=== PATIENT | female | born 1995 | race Caucasian/White ===

== ENCOUNTER 2017-08-07 16:17 | Emergency (ER) | payer BC, SELFPAY ==
[2017-08-07 16:19] VITALS: BP 163/93; PULSE 92; RESP 16; TEMP 36.4; O2SAT 99; BMI 42.0
--- NOTE | 2017-08-07 16:38 | ED.VISSUMM ---
- ER Visit Summary Date of Service: 08/07/17 Chief Complaint: Approximately 6 weeks with vaginal bleeding History of Present Illness: The patient is a 21 F past medical or surgical history. Patient believes she is 6-7 weeks . She has had no care but is scheduled to see Dr. Sallie Purcell of [facility] on Tuesday. She states that last evening today she has had some bright red bleeding. And mild cramping. Currently she is pain-free. She denies any dysuria. She denies any discharge. She has never been before. Physical Examination: Well-appearing young female. Vital signs are stable afebrile. H EENT exam normal. Neck normal. Lungs clear to auscultation bilaterally. Heart regular rate and rhythm no murmur. Abdomen is soft and nontender. No peritoneal signs. Normal bowel sounds. Nondistended. She is moving all 4 extremities. Neurovascular intact. Neurologic exam normal. Test Results: Reportedly Ab0. With vaginal bleeding. Blood type A+. Quantitative hCG is 3386. UA is negative. Transvaginal pelvic ultrasound shows a small endometrial fluid collection consistent with a gestational age of 5 weeks and 0 days. No pole. No yolk sac. Emergency Department Course and Treatment: On repeat exam patient is doing well at 2110. She currently is pain-free and has no reproducible abdominal pain. She denied discussed all her test results along with her . I discussed with Dr. Patrick Tadeo telecommunication lines repairer for Dr. Purcell. Patient be discharged home to follow-up with Dr. Purcell on Tuesday. Treatment Plan: Follow-up the [facility] on Tuesday. Return if increasing pain or much heavier bleeding. Disposition: Discharge Impression: with vaginal bleeding secondary to threatened miscarriage Ultrasound consistent with 5 weeks and 0 days This note was generated with [employer] dictation software. It may contain incorrect words, spelling, and punctuation that were not noted in review of the chart prior to signing ED Disposition - Plan for ED Patient: Chief Complaint: Vag Bld, Preg
[2017-08-07 16:58] LABS: Mucous, Urine 0 SEEN /hpf (<or=2+); White Blood Cells 0 SEEN /hpf (0-5)
[2017-08-07 17:02] LABS: Color, Urine Yellow (Yellow); Glucose, Dipstick Normal (Normal); Ketone-Dipstick 15 mg/dl (Negative); Leukocyte Esterase-Dipstick Negative /ul (Negative); Nitrite-Dipstick Negative (Negative); Occult Blood-Urine 250 /ul (Negative); Protein-Dipstick Negative (Negative); Specific Gravity, Urine 1.025 (1.002-1.030); Urine Bilirubin Dipstick Negative (Negative); Urine Clarity Clear (Clear); Urine Urobilinogen Normal (Normal)
[2017-08-07 17:29] LABS: Bacteria RARE /hpf (None Seen); Red Blood Cells-Urine 5-10 SEEN /hpf (0-5); Squamous Epithelial Cells - UA 0-5 SEEN /hpf (5-10)
[2017-08-07 18:13] LABS: hCG Titer Quant., Serum 3386 mIU/mL (<9 non-preg)
[2017-08-07 18:38] VITALS: BP 153/84; PULSE 107; RESP 14; O2SAT 99
--- NOTE | 2017-08-07 18:43 | US_ITS ---
STUDY: FIRST TRIMESTER OBSTETRICAL ULTRASOUND REASON FOR EXAM: Female, 21 years old. Spotting LMP: 06/20/2017 TECHNIQUE: Transabdominal and Transvaginal PRIOR ULTRASOUND: None. FINDINGS: There is visualization of a single possible gestational sac in a normal intrauterine position. The mean sac diameter (MSD) measures 7 x 4 x 4 mm, indicating an estimated gestational age (EGA) of 5 weeks, 0 days. The gestational sac shape is within normal limits. There is no demonstrated yolk sac. The placenta is non-visualized. There is no demonstrated embryo ( pole). . The estimated gestation age (EGA) by LMP is 6 weeks, 6 days. The estimated date of delivery (NANCY) by LMP is 03/27/2018. The estimated gestation age (EGA) by US is 5 weeks, 0 days. The estimated date of delivery (NANCY) by US is 04/09/2018. The uterus measures 9.2 x 4.8 x 4.2 cm. There is no demonstrated uterine fibroid. The cervix is closed. The right ovary measures 3.5 x 2.5 x 1.7 cm. There is no right ovarian cyst. There is no visualized right adnexal mass or complex lesion. The left ovary measures 3.5 x 2.4 x 1.4 cm. There is no left ovarian cyst. There is no visualized left adnexal mass or complex lesion. There is no fluid in the cul de sac. US/Transvaginal w/Preg US IMPRESSION: Small endometrial fluid collection seen measuring 7 x 4 x 4 mm. This corresponds to a gestational age of 5 weeks 0 days. This may be pharmaceutical representative of a very early or may be associated with ectopic. No pole or yolk sac is seen within this fluid structure. Close interval ultrasound follow-up with serial beta hCG levels is recommended. Electronically Signed: Lawrence Chen MD at 20:44 EST , Service support ,
[2017-08-07 20:25] VITALS: BP 129/74; PULSE 100; RESP 18; O2SAT 98
--- NOTE | 2017-08-07 21:13 | ED.DEP ---
ED Disposition - Plan for ED Patient: Disposition: Home or Assisted Living Chief Complaint: Vag Bld, Preg Instructions: ED Miscarriage Poss Referrals: Sallie Purcell MD [STAFF PHYSICIAN] - Keep Allison appointment Additional Instructions: Your blood type is A+. Your quantitative hCG equals 3, 386. Your ultrasound was consistent with an early at 5 weeks. You will need to follow-up with on Tuesday. Have repeat quantitative hCG obtained. She may or may not choose at that time to do additional ultrasound. Return to the ER if much heavier bleeding or significantly increasing pain.
[2017-08-07 21:22] VITALS: BP 126/75; PULSE 98; RESP 18; O2SAT 100
== END 2017-08-07 21:24 | disposition home or self-care (01) ==
PROVIDERS: Emergency Provider Emergency Medicine
DX: O20.0 Threatened abortion (principal); O20.9 Hemorrhage in early pregnancy, unspecified; Z3A.01 Less than 8 weeks gestation of pregnancy
CPT/HCPCS: 76817; 81001; 84702; 86900; 86901; 99283; A4216

== ENCOUNTER → 2018-06-13 15:32 | Outpatient (CLI) | payer BC, SELFPAY ==
[2018-06-13 20:02] LABS: Chlamydia Trachomatis by PCR Negative (Negative); Neisserai gonorrhoeae by PCR Negative (Negative); Probe Check PASS; Sample Adequacy Control PASS; Specimen Processing Control PASS
[2018-06-20 08:15] LABS: HPV HC, High Risk Negative (Negative); HPV Reflexed? NOT INDICATED
== END ==
PROVIDERS: Visit Provider Obstetrics & Gynecology
DX: Z12.4 Encounter for screening for malignant neoplasm of cervix (principal); Z11.3 Encounter for screening for infections with a predominantly sexual mode of transmission
CPT/HCPCS: 87491; 87591; 88175; G0145

== ENCOUNTER → 2018-07-04 10:06 | Outpatient (CLI) | payer BC, SELFPAY ==
[2018-07-04 10:44] LABS: Color, Urine Yellow (Yellow); Glucose, Dipstick Normal (Normal); Ketone-Dipstick Negative (Negative); Leukocyte Esterase-Dipstick Negative /ul (Negative); Nitrite-Dipstick Negative (Negative); Occult Blood-Urine 10 /ul (Negative); Protein-Dipstick Negative (Negative); Specific Gravity, Urine 1.015 (1.002-1.030); Urine Bilirubin Dipstick Negative (Negative); Urine Clarity Sl. Cloudy (Clear); Urine Urobilinogen Normal (Normal); Urine pH 6.5 (5.0 - 8.0)
[2018-07-04 13:39] LABS: Absolute Lymphocyte Count 1.82 X10^3/ul (0.83-4.51); Absolute Neutrophil Count 9.6 X10^3/uL (2.0-7.7); Basophil# 0.03 X10^3/uL; Basophil% 0.2 % (0-1); Eosinophil# 0.04 X10^3/uL; Eosinophils% 0.3 % (0-5); Hemoglobin 11.8 g/dl (12.0-15.0); Lymphocyte # 1.82 X10^3/ul (4.0); Mean Corp Hgb Conc 31.9 g/gl (32-36); Mean Corpuscular Hgb 26.2 pg (27.0-32.0); Mean Platelet Vol. 10.5 fl (6.2-12.0); Monocyte# 0.57 X10^3/uL; Monocyte% 4.7 % (0-10); Neutrophil # 9.61 X10^3/uL (2.7-7.7); Neutrophil % 79.6 % (47-70); POSITIVE COUNT NO; POSITIVE DIFFERENTIAL NO; POSITIVE MORPHOLOGY NO; Platelet Count 316 K/mm3 (150-450); RBC Distribution Width CV 14.9 % (11.6-14.6); RBC Distribution Width SD 44.7 fl (35.1-43.9); Red Blood Count 4.51 M/mm3 (4.2-5.4); White Blood Count 12.1 K/mm3 (4.4-11.0)
[2018-07-04 13:57] LABS: Thyroid Stim Hormone (TSH) 1.37 uIU/mL (0.358-3.74)
[2018-07-04 14:40] LABS: HIV - WCH Non-Reactive (Nonreactive); Rubella IgG 180.3 IU/mL
[2018-07-05 11:56] LABS: HEPATITIS B SURFACE AG Negative (Negative); Hep C Antibodies 0.1 s/co ratio (0.0-0.9)
[2018-07-07 07:39] LABS: Prenatal RPR NONREACTIVE (NONREACTIVE)
== END ==
PROVIDERS: Visit Provider Obstetrics & Gynecology
DX: Z34.81 Encounter for supervision of other normal pregnancy, first trimester (principal)
CPT/HCPCS: 36415; 81002; 84443; 85025; 86703; 86762; 86803; 87340

== ENCOUNTER → 2018-11-15 08:58 | Outpatient (CLI) | payer BC, SELFPAY ==
[2018-11-15 10:59] LABS: Hematocrit 33.3 % (37-47); Hemoglobin 10.9 g/dl (12.0-15.0); Mean Corp Hgb Conc 32.7 g/gl (32-36); Mean Corpuscular Hgb 27.7 pg (27.0-32.0); Mean Corpuscular Volume 84.5 fL (81-99); Mean Platelet Vol. 10.7 fl (6.2-12.0); Platelet Count 216 K/mm3 (150-450); RBC Distribution Width CV 14.3 % (11.6-14.6); RBC Distribution Width SD 43.4 fl (35.1-43.9); Red Blood Count 3.94 M/mm3 (4.2-5.4); Scan Indicated on CBC? Y/N NO; White Blood Count 11.2 K/mm3 (4.4-11.0)
[2018-11-15 11:04] LABS: Glucose Challenge Gest 1H 50g 98 mg/dL (70-140)
== END ==
PROVIDERS: Visit Provider Obstetrics & Gynecology
DX: Z34.83 Encounter for supervision of other normal pregnancy, third trimester (principal)
CPT/HCPCS: 36415; 82950; 85027

== ENCOUNTER → 2018-12-13 16:08 | Outpatient (CLI) | payer BC, SELFPAY ==
[2018-12-13 16:46] LABS: Fetal Fibronectin Negative
== END ==
PROVIDERS: Visit Provider Obstetrics & Gynecology
DX: O23.43 Unspecified infection of urinary tract in pregnancy, third trimester (principal); Z3A.00 Weeks of gestation of pregnancy not specified
CPT/HCPCS: 82731; 87086; 87088

== ENCOUNTER → 2019-01-11 10:52 | Outpatient (CLI) | payer BC, SELFPAY | PROVIDERS: Visit Provider Obstetrics & Gynecology | DX: Z36.85 Encounter for antenatal screening for Streptococcus B (principal) | CPT/HCPCS: 87077; 87081; 87186 ==

== ENCOUNTER 2019-01-28 15:50 | Outpatient (CLI) | payer BC, SELFPAY ==
[2019-01-28 16:09] VITALS: BMI 40.9
--- NOTE | 2019-01-30 06:23 | OB.TRI.NOTE ---
History of Present Illness Date of Service: 01/28/19 Was patient seen by the physician?: No Reason For Visit: Decreased Movement Date of Service: 01/28/19 Final NANCY: 02/06/19 Final NANCY Source: US <20 weeks Gestational age: 38 Weeks and 5 Days History of Present Illness: 38+ week intrauterine presents with decreased movement. care otherwise has been uneventful. Allergies clarithromycin [From Biaxin] Allergy (Verified 08/07/17 16:18) Hives NST - FHR Rate Baby A NST Reactive:: Yes FHR Category:: Category I Impression/Plan 38+ week and uterine with decreased movement. Nonstress test is reactive. Will release to home with routine instructions.
== END 2019-01-28 16:35 | disposition home or self-care (01) ==
LOC: WPOUT 15:56 → WP 15:57
PROVIDERS: Visit Provider Obstetrics & Gynecology
DX: O36.8130 Decreased fetal movements, third trimester, not applicable or unspecified (principal); Z3A.38 38 weeks gestation of pregnancy
CPT/HCPCS: 59025; 59050; 99218; G0378

== ENCOUNTER 2019-02-11 08:48 | Inpatient (IN) | payer BC, SELFPAY ==
[2019-02-11 08:37] VITALS: BMI 41.8
[2019-02-11 08:47] LABS: ROM Internal Control Test YES-OK TO RESULT pt. (Internal QC)
[2019-02-11 08:48] LABS: ROM Patient Test POSITIVE (Negative)
[2019-02-11] MEDS: Lactated Ringers 1,000 ML 50 ML IV (09:20)
[2019-02-11 09:33] LABS: Absolute Lymphocyte Count 1.89 X10^3/uL (0.83-4.51); Absolute Neutrophil Count 12.3 X10^3/uL (2.0-7.7); Basophil# 0.03 X10^3/uL; Basophil% 0.2 % (0-1); Eosinophil# 0.08 X10^3/uL; Eosinophils% 0.5 % (0-5); Hematocrit 34.1 % (37-47); Lymphocyte # 1.89 X10^3/ul (4.0); Lymphocyte % 12.4 % (19-41); Mean Corp Hgb Conc 32.3 g/dL (32-36); Mean Corpuscular Hgb 26.8 pg (27.0-32.0); Mean Corpuscular Volume 83.2 fL (81-99); Mean Platelet Vol. 10.3 fl (6.2-12.0); Monocyte# 0.79 X10^3/uL; Monocyte% 5.2 % (0-10); NRBC Flagged by Analyzer 0 % (0-5); Neutrophil # 12.34 X10^3/uL (2.7-7.7); Neutrophil % 80.8 % (47-70); Platelet Count 216 K/mm3 (150-450); RBC Distribution Width CV 14.6 % (11.6-14.6); RBC Distribution Width SD 44.1 fl (35.1-43.9); White Blood Count 15.3 K/mm3 (4.4-11.0)
[2019-02-11] MEDS: Oxytocin 30 units/NS 500 ml 30 UNITS/500 ML IV.SOLN IV (12:32)
[2019-02-11] MEDS: Lactated Ringers 500 ML 999 ML IV ×2 (16:22→20:18)
[2019-02-11] MEDS: fentaNYL-bupivacaine (epidural) 100 ML BAG EPIDURAL (17:24)
[2019-02-11] MEDS: Ondansetron 4 MG/2 ML Vial IV (18:07)
[2019-02-11] MEDS: 0.9% Saline Lock 10 ML Syringe IV (18:08)
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
[2019-02-11] MEDS: Amnioinfusion- 0.9% NS 1,000 ML IV.SOLN. 50 ML INTRA-UTER (20:01)
[2019-02-11] MEDS: Lactated Ringers 1,000 ML 200 ML IV (20:42)
[2019-02-11] MEDS: Sodium Citrate/Citric Acid 30 ML UDC PO (21:31)
[2019-02-11] MEDS: Cefazolin 2 GM in 0.9% Normal Saline 100 ML IV (21:36)
--- NOTE | 2019-02-11 21:41 | PCM.PN.OB ---
Subjective: Patient has progressed to approximately 6 to 7 cm 90% effaced -1 station with adequate contractions noted with an intrauterine pressure catheter. Multiple late decelerations have been noted over the past hour despite starting an amnioinfusion, stopping Pitocin and giving the patient nc oxygen as well as putting on her hands and knees. Given no prospect of delivery soon with continued intermittent late decelerations, we will proceed with primary section for increasing stress. We discussed the risks, benefits and alternatives of this procedure and all questions were answered. - Physical Exam Weight: 243 lb 6.245 oz Body Mass Index (BMI) 41.8 Intake and Output for Last 24 Hours 02/09/19 02/10/19 02/11/19 23:59 23:59 23:59 Intake Total Balance Laboratory Tests Past 24 Hrs 02/11/19 02/11/19 02/11/19 08:20 09:20 09:20 WBC 15.3 H RBC 4.10 L Hgb 11.0 L Hct 34.1 L MCV 83.2 MCH 26.8 L MCHC 32.3 RDW Std Deviation 44.1 H RDW Coeff of Lul 14.6 Plt Count 216 MPV 10.3 Immature Gran % (Auto) 0.900 Neut % (Auto) 80.8 H Lymph % (Auto) 12.4 L Bradley % (Auto) 5.2 Eos % (Auto) 0.5 Baso % (Auto) 0.2 Absolute Neuts (auto) 12.3 H Absolute Lymphs (auto) 1.89 Nucleated RBC % 0 Vag Amniotic Fld Detect POSITIVE H Blood Type A POSITIVE Antibody Screen NEGATIVE Medical Necessity - Tobacco Use Smoking Status: Never smoker
--- NOTE | 2019-02-11 21:44 | OP.PCM_ITS ---
Delivery Classification: LUCERO Final NANCY: 02/06/19 Final NANCY Source: US <20 weeks Gestational age: 40 Weeks and 5 Days doctor who attended delivery (if requested by OB): Mikaela Taveras amusement ride inspector: Arlene Rodriguez Type of Anesthesia:: Epidural - With Duramorph Implants Used: None Date of Procedure: 02/11/19 Pre-Operative Diagnosis: Postdate Intrauterine with Increasing Stress Post-Operative Diagnosis: Postdate Intrauterine with Increasing Stress Indications: Postdate Intrauterine with Increasing Stress Description of Procedure: Surgeon: Patrick Tadeo MD, FACOG Power Checker: RAO Guadalupe Anesthesia: Johana Coteat, FACILITY DESIGNER Anesthesia: Spinal with Duramorph Procedure: Primary Low Transverse Cervical Caesarean Section Findings: Viable male with Apgars of 4/9 in occiput anterior presentation with clear amniotic fluid and normal three-vessel placenta. Indication: This is a 23-year-old who presented in labor at 40+ weeks gestation. She progressed to about 6 to 7 cm and began having repetitive late decelerations. Given this we decided to proceed with primary section. care has otherwise been uneventful. The patient has been counseled regarding the risk and indications of this procedure including the possibility of bleeding infection and injury to surrounding structures such as bowel bladder. All questions were answered. Procedure: Patient was taken to the operating room where after spinal anesthesia was placed, the patient was prepped and draped in usual sterile fashion and a Luz catheter was placed. The abdomen was entered through a Pfannenstiel incision and peritoneum was entered bluntly. After developing a bladder flap on the lower uterine segment a low transverse incision was made on the uterus and head was delivered onto the operative field the nose mouth and oropharynx were bulb suctioned. Subsequently a viable male was born with Apgars of 4/9. The infant was noted to cry move all extremities vigorously on the operative field. The umbilical cord was doubly clamped and ligated and infant handed to the nursery and pediatric personnel who were present for the delivery. Placenta was delivered and noted to be 3 vessels and normal. Uterus was exteriorized and remaining placental tissue was removed. The uterus was then closed in 2 layers first with running locked 0 Vicryl suture followed by a second imbricating layer with 0 Vicryl suture. 0 Vicryl suture was then used in a horizontal mattress interrupted fashion to affect final hemostasis of the uterine incision line. Normal fallopian tubes and ovaries were visualized and the uterus was returned to the pelvis. Hemostasis was noted and rectus abdominis muscles were reapproximated in the midline with interrupted Number 0 Vicryl suture in a horizontal mattress fashion. Fascia was closed with running Number 1 PDS Strata fix suture. Subcutaneous tissue was irrigated with copious amounts of saline solution and then closed with running 3-0 Vicryl suture. Skin was closed with 4-0 monocryl suture in a running subcuticular fashion. Steri strips, telfa, and tape were placed across the incision. The patient tolerated the procedure well and was taken to the recovery room in satisfactory condition. Sponge, needle, and instrument counts were all reportedly correct. EBL was 750 cc cc. Ancef 2 gms IV was given prior to the procedure. Spicemen to Pathology: None Complications: None Amniotic Membrane Rupture Type: Spontaneous Amniotic Fluid Description: Clear Placenta Disposition: [facility] Specimen(s) sent to pathology: None Drain: Luz to straight drain Fluids Replaced: Crystalloid Cord Entanglement: None Cord Vessel Description: 3 Vessels Esitmated Blood Loss (ml): 750 cc Infant Gender: Male (1 minute): 4 (5 minute): 9 Pt instructed on risks of surgery: Bleeding, Infection, Injury to surrounding structure(s) including bowel and bladder Complications: None - Admit VTE Documentation VTE Present on Admission: Yes VTE Mechan Device Prophylaxis: SCD's
--- NOTE | 2019-02-11 22:45 | DCINST_ITS ---
Discharge Diet: No Restrictions Discharge Activity: May not drive while taking narcotic pain medications., May Shower, May Take a Tub Bath May resume sexual activity in: 4-6 weeks Lifting Restrictions: 20 pounds Additional Activity Instructions:: Nothing in the vagina for 4-6 weeks. You may return to work/school in 6 weeks. Call your doctor if your incision/area has: Continuous Slow Oozing, Sudden Increased Bleeding, Increased Pain/ Swelling, Increased Redness, Foul Smelling Discharge Call your doctor if you observe: Fever of 101 or Higher, Inability to urinate, Inability to have a bowel movement, Using more than one pad per hour Additional Instructions: If you experience any of the following, contact your healthcare provider. * Bleeding that soaks a pad every hour for 2 hours * Unrelieved incision or abdominal pain * Swelling, redness, discharge or bleeding from your incision or episiotomy site * Your incision begins to separate * Problems urinating (including inability to urinate or burning while urinating). * Visual changes * Severe headache * Flu-like symptoms * Pain or redness in one of both of your breasts * Pain, warmth, tenderness or swelling in your legs, especially the calf area * Frequent nausea and vomiting * Symptoms of depression or anxiety If you experience any of the following, call 911 or go to the nearest Emergency Room. * Chest pain * Problems breathing * Seizure activity * Partial or complete paralysis of a body part, slurred speech, weakness or drooping of the face, or a sudden inability to walk or hold your balance Allergies/Adverse Reactions: Allergies clarithromycin [From Biaxin] Allergy (Verified 08/07/17 16:18) Hives Medications to take at Discharge Pnv No.103/Folic/Om3s/Fish Oil [ Gummies] 1 each PO DAILY 08/07/17 Docusate Sodium [Colace] 100 mg PO BID PRN PRN #60 cap 02/11/19 RX: Oxycodone [Oxyir] 5 mg PO Q6H PRN PRN 7 Days #20 tab 02/11/19 The following prescriptions were given: Docusate Sodium [Colace] 100 mg PO BID PRN PRN #60 cap PRN Reason: Constipation Prescription Printed RX: Oxycodone [Oxyir] 5 mg PO Q6H PRN PRN 7 Days #20 tab PRN Reason: Severe Pain (6-03/15) Prescription Printed Follow-Up: Call to make an appointment with your doctor for an incision check in 1-2 weeks. You will also need a 6 week post- follow up appointment. Test results from this visit will be discussed in further detail at your follow- up appointment, if applicable. Please Follow Up With: Sallie Purcell MD - [phone] When: Call to make an appointment for an incision check in 2 weeks. Primary Care Physician: Care Physician,No Primary [Primary Care Provider] -
[2019-02-11 22:55] VITALS: BP 115/56; BP 95/62; PULSE 95; RESP 16; TEMP 36.7; O2SAT 99
[2019-02-11 23:10] VITALS: BP 115/56; BP 118/48; PULSE 88; RESP 18; TEMP 36.6; O2SAT 99
[2019-02-11] MEDS: Oxytocin 30 units/NS 500 ml 30 UNITS/500 ML IV.SOLN 167 UNITS IV (23:10)
[2019-02-11 23:25] VITALS: BP 115/56; BP 120/49; PULSE 79; RESP 16; TEMP 36.6; O2SAT 98
[2019-02-11 23:40] VITALS: BP 115/56; BP 129/59; PULSE 89; RESP 16; TEMP 36.6; O2SAT 98
[2019-02-11 23:55] VITALS: BP 115/56; BP 122/54; PULSE 84; RESP 18; TEMP 36.6; O2SAT 97
[2019-02-12] VITALS (21 sets, daily range): BP systolic 101–124; BP diastolic 52–65; PULSE 79–104; RESP 16–20; TEMP 36.1–36.7; O2SAT 95–100
[2019-02-12] MEDS: Acetaminophen 500 MG Tablet 1000 MG PO ×2 (02:13→23:10)
[2019-02-12] MEDS: Lactated Ringers 1,000 ML 100 ML IV (02:18)
[2019-02-12] MEDS: Ketorolac 30 MG/ML Syringe IV ×3 (05:10→16:52)
[2019-02-12] MEDS: Cefazolin 1 GM/50 ML BAG IV ×2 (05:13→12:49)
[2019-02-12 05:35] LABS: Hematocrit 28.2 % (37-47); Hemoglobin 8.9 g/dL (12.0-15.0); Mean Corp Hgb Conc 31.6 g/dL (32-36); Mean Corpuscular Hgb 26.6 pg (27.0-32.0); Mean Corpuscular Volume 84.4 fL (81-99); Mean Platelet Vol. 10.4 fl (6.2-12.0); Platelet Count 164 K/mm3 (150-450); RBC Distribution Width CV 14.6 % (11.6-14.6); Red Blood Count 3.34 M/mm3 (4.2-5.4); White Blood Count 18.2 K/mm3 (4.4-11.0)
--- NOTE | 2019-02-12 07:40 | PN.OBGYN_ITS ---
Subjective: POD#1 Primary C section, intolerance of labor - Physical Exam General: Alert, Oriented x3, Cooperative, No apparent distress HEENT: Atraumatic, EOMI Neck: Supple Abdomen: Soft - Fundus firm minimally tender c/w postop status, at umbilicus Skin: Incision - CDI. Telfa paper tape dressing, no dischg noted. Psych/Mental Status: Normal Affect, Appropriate Vital Signs Temp Pulse Resp BP Pulse Ox 97.8 F 96 16 116/59 L 97 02/12/19 06:45 02/12/19 06:45 02/12/19 06:45 02/12/19 06:45 02/12/19 06:45 Oxygen Delivery Method Room Air Weight: 110.4 kg Body Mass Index (BMI) 41.8 Intake and Output for Last 24 Hours 02/10/19 02/11/19 02/12/19 23:59 23:59 23:59 Intake Total 3701.51 / 3701.51 1341.67 / 1341.67 Output Total 300 / 300 850 / 850 Balance 3401.51 / 3401.51 491.67 / 491.67 Laboratory Tests Past 24 Hrs 02/11/19 02/11/19 02/11/19 08:20 09:20 09:20 WBC 15.3 H RBC 4.10 L Hgb 11.0 L Hct 34.1 L MCV 83.2 MCH 26.8 L MCHC 32.3 RDW Std Deviation 44.1 H RDW Coeff of Lul 14.6 Plt Count 216 MPV 10.3 Immature Gran % (Auto) 0.900 Neut % (Auto) 80.8 H Lymph % (Auto) 12.4 L [place] % (Auto) 5.2 Eos % (Auto) 0.5 Baso % (Auto) 0.2 Absolute Neuts (auto) 12.3 H Absolute Lymphs (auto) 1.89 Nucleated RBC % 0 Vag Amniotic Fld Detect POSITIVE H Blood Type A POSITIVE Antibody Screen NEGATIVE 02/12/19 05:20 WBC 18.2 H RBC 3.34 L Hgb 8.9 L Hct 28.2 L MCV 84.4 MCH 26.6 L MCHC 31.6 L RDW Std Deviation 45.0 H RDW Coeff of Lul 14.6 Plt Count 164 MPV 10.4 Immature Gran % (Auto) Neut % (Auto) Lymph % (Auto) [place] % (Auto) Eos % (Auto) Baso % (Auto) Absolute Neuts (auto) Absolute Lymphs (auto) Nucleated RBC % Vag Amniotic Fld Detect Blood Type Antibody Screen Medical Necessity - Tobacco Use Smoking Status: Never smoker Assessment/Plan POD#1 Primary C section, intolerance of labor. Postop acute blood loss anemia. AVSS clinically stable. Ferrous gluconate bid Continue routine postop care. Inc diet and activity as tolerated. Begin po meds. S/L IV for continued Toradol x 48 hr postop. D/C galindo for voiding trial today.
[2019-02-12] MEDS: Ferrous Gluconate 324 MG Tablet PO ×2 (11:00→19:53)
[2019-02-12] MEDS: 0.9% Saline Lock 10 ML Syringe IV ×3 (12:51→23:06)
[2019-02-12] MEDS: oxyCODONE 5 MG Tablet PO (22:24)
[2019-02-13] MEDS: oxyCODONE 5 MG Tablet PO ×5 (02:21→23:25)
[2019-02-13 04:20] VITALS: BP 101/53; PULSE 83; RESP 17; TEMP 36.7
--- NOTE | 2019-02-13 07:52 | PCM.PN.OB ---
Subjective: POD#2 Primary C/S Doing well A little sore. Asking about pain med for home use. Plans to stay today. - Physical Exam General: Alert, Oriented x3, Cooperative, No apparent distress HEENT: Atraumatic, EOMI Neck: Supple Abdomen: Soft - fundus firm minimally tender at approx umbilicus Skin: Incision - Cover dressing removed. Steristrips CDI. Neurological: Cranial nerves II-XII grossly intact Psych/Mental Status: Normal Affect Vital Signs Temp Pulse Resp BP Pulse Ox 98.0 F 83 17 101/53 L 98 /03/24 04:20 02/13/19 04:20 02/13/19 04:20 02/13/19 04:20 02/12/19 23:10 Oxygen Delivery Method Room Air Weight: 110.4 kg Body Mass Index (BMI) 41.8 Intake and Output for Last 24 Hours //02/12/19 02/13/19 23:59 23:59 23:59 Intake Total 3701.51 / 3701.51 2100.00 / 2100.00 Output Total 300 / 300 1250 / 1250 Balance 3401.51 / 3401.51 850.00 / 850.00 Medical Necessity - Tobacco Use Smoking Status: Never smoker Assessment/Plan POD#2 Primary C section, intolerance of labor. Postop acute blood loss anemia. AVSS clinically stable. Ferrous gluconate bid to continue Continue routine postop care.
[2019-02-13] MEDS: Senna/Docusate Sodium 1 Tablet PO (09:34)
[2019-02-13] MEDS: Ferrous Gluconate 324 MG Tablet PO ×2 (09:34→17:14)
[2019-02-13] MEDS: Ibuprofen 600 MG Tablet PO ×2 (09:34→17:15)
[2019-02-13 09:35] VITALS: BP 122/75; PULSE 109; RESP 20; TEMP 36.7; O2SAT 97
[2019-02-13 14:05] VITALS: BP 120/66; PULSE 92; TEMP 36.8; O2SAT 99
[2019-02-13 20:32] VITALS: BP 112/72; PULSE 94; RESP 18; TEMP 36.8
[2019-02-13] MEDS: Acetaminophen 500 MG Tablet 1000 MG PO (22:09)
[2019-02-14 01:50] VITALS: BP 129/65; PULSE 97; RESP 18; TEMP 36.6
[2019-02-14] MEDS: Ibuprofen 600 MG Tablet PO ×2 (02:01→08:50)
[2019-02-14] MEDS: oxyCODONE 5 MG Tablet PO ×2 (06:13→10:25)
--- NOTE | 2019-02-14 07:53 | PCM.PN.OB ---
Subjective: POD#3 Primary C section Doing well likes the abdominal binder. Rotating pain meds which is helping. Bottle feeding. Would like to go home today. Objective: Sitting up in chair, holding baby. - Physical Exam General: Alert, Oriented x3, Cooperative, No apparent distress HEENT: Atraumatic, EOMI Neck: Supple Abdomen: Soft - abdominal binder in place. Skin: Incision - Steristrips beginning to peel off (showered several times, moist) Neurological: Cranial nerves II-XII grossly intact Psych/Mental Status: Normal Affect Vital Signs Temp Pulse Resp BP Pulse Ox 97.8 F 97 18 129/65 H 99 02/14/19 01:50 02/14/19 01:50 02/14/19 01:50 02/14/19 01:50 02/13/19 14:05 Oxygen Delivery Method Room Air Weight: 110.4 kg Body Mass Index (BMI) 41.8 Intake and Output for Last 24 Hours //22 02/03/2402/14/19 23:59 23:59 23:59 Intake Total 2100.00 / 2100.00 Output Total 1250 / 1250 Balance 850.00 / 850.00 Medical Necessity - Tobacco Use Smoking Status: Never smoker Assessment/Plan POD#3 Primary C section, intolerance of labor. Postop acute blood loss anemia. AVSS clinically stable. Ferrous gluconate bid to continue Dischg home today. RTO in 2 wk for POSTOP check.
--- NOTE | 2019-02-14 07:56 | PCM.DC.SUM ---
Discharge Date and Diagnosis Date of Admission: 02/11/19 Date of Discharge: 02/14/19 Hospital Course and Treatment Consultations 02/11/19 08:56 Consult: Anesthesia Routine Comment: Reason For Exam: Labor Operations: - - primary C section Summary of Care Provided: The patient is a 23 year old female presented in labor at 40+ weeks gestation. She progressed to about 6 to 7 cm and began having repetitive late decelerations. C section delivery advised. Findings: Viable male with Apgars of 4/9 in occiput anterior presentation with clear amniotic fluid and normal three-vessel placenta. Postop course uneventful. Hgb 11 preop to 8.9 g/dl postop. AVSS Postoperative course uneventful. Elects to go home on POD#3 RTO in 2 wk for postoperative appt. - Physical Exam Vital Signs Temp Pulse Resp BP Pulse Ox 97.8 F 97 18 129/65 H 99 02/14/19 01:50 02/14/19 01:50 02/14/19 01:50 02/14/19 01:50 02/13/19 14:05 Oxygen Delivery Method Room Air Weight: 110.4 kg Body Mass Index (BMI) 41.8 Intake and Output for Last 24 Hours 02/12/19 02/13/19 02/14/19 23:59 23:59 23:59 Intake Total 2100.00 / 2100.00 Output Total 1250 / 1250 Balance 850.00 / 850.00 Discharge Diet: No Restrictions Discharge Activity: May not drive while taking narcotic pain medications., May Shower, May Take a Tub Bath May resume sexual activity in: 4-6 weeks Additional Activity Instructions:: Nothing in the vagina for 4-6 weeks. You may return to work/school in 6 weeks. Call your doctor if your incision/area has: Continuous Slow Oozing, Sudden Increased Bleeding, Increased Pain/ Swelling, Increased Redness, Foul Smelling Discharge Call your doctor if you observe: Fever of 101 or Higher, Inability to urinate, Inability to have a bowel movement, Using more than one pad per hour Home Medications: Medications to take at Discharge Pnv No.103/Folic/Om3s/Fish Oil [ Gummies] 1 each PO DAILY 08/07/17 Docusate Sodium [Colace] 100 mg PO BID PRN PRN #60 cap 02/11/19 Oxycodone [Oxyir] 5 mg PO Q6H PRN PRN 7 Days #20 tab 02/11/19 Following Prescrptions Were Given to Patient: Docusate Sodium [Colace] 100 mg PO BID PRN PRN #60 cap PRN Reason: Constipation Prescription Printed Oxycodone [Oxyir] 5 mg PO Q6H PRN PRN 7 Days #20 tab PRN Reason: Severe Pain (6-10) Prescription Printed Primary Care Physician: Care Physician,No Primary [Primary Care Provider] - Please Follow Up With: Sallie Purcell MD - [phone] When: Call to make an appointment for an incision check in 2 weeks. Medical Necessity - Tobacco Use Smoking Status: Never smoker Meaningful Use Info Meaningful Use Diagnoses (Choose all that apply): None applicable
[2019-02-14 08:20] VITALS: BP 116/69; PULSE 90; RESP 16; TEMP 35.9; O2SAT 100
[2019-02-14] MEDS: Senna/Docusate Sodium 1 Tablet PO (08:50)
[2019-02-14] MEDS: Ferrous Gluconate 324 MG Tablet PO (08:50)
[2019-02-14 09:01] VITALS: BP 116/69; PULSE 84; RESP 16; TEMP 35.9; O2SAT 100
[2019-02-14 11:44] VITALS: BP 107/77; PULSE 98; RESP 18; TEMP 36.6; O2SAT 100
--- NOTE | 2019-02-14 13:09 | NURSING ---
This nurse reviewed the documentation completed by Juvencio Lew, student nurse and it is complete.
== END 2019-02-14 12:30 | disposition home or self-care (01) | DRG 787 ==
LOC: WPOUT 08:53
PROVIDERS: Admitting Provider Obstetrics & Gynecology; Visit Provider Obstetrics & Gynecology
DX: O48.0 Post-term pregnancy (principal); O76 Abnormality in fetal heart rate and rhythm complicating labor and delivery; D62 Acute posthemorrhagic anemia; O90.81 Anemia of the puerperium; Z3A.40 40 weeks gestation of pregnancy; Z37.0 Single live birth
CPT/HCPCS: 59025; 59050; 84112; 85025; 85027; 86850; 86900; 86901; 99218; J7030; J7120; A4216; G0378; J2405

== ENCOUNTER → 2020-02-01 | Outpatient (CLI) | payer BC, SELFPAY ==
[2020-02-05 14:45] LABS: HPV APTIMA, High Risk Negative (Negative); HPV Reflexed? YES, CHARGE PATIENT
== END | disposition home or self-care (01) ==
PROVIDERS: Visit Provider Student in an Organized Health Care Education/Training Program
DX: Z12.4 Encounter for screening for malignant neoplasm of cervix (principal)
CPT/HCPCS: 87624; 88175; G0145

== ENCOUNTER 2021-07-14 10:37 | Outpatient (CLI) | payer OTHER, SELFPAY ==
[2021-07-14 10:49] LABS: Hematocrit 32.6 % (37-47); Hemoglobin 11.1 g/dL (12.0-15.0); Mean Corpuscular Hgb 29.1 pg (27.0-32.0); Mean Corpuscular Volume 85.6 fL (81-99); Platelet Count 206 K/mm3 (150-450); RBC Distribution Width CV 14.1 % (11.6-14.6); RBC Distribution Width SD 43.8 fl (35.1-43.9); Red Blood Count 3.81 M/mm3 (4.2-5.4); White Blood Count 10.5 K/mm3 (4.4-11.0)
[2021-07-14 14:25] LABS: ALB/GLOB Ratio 0.7 RATIO (0.9-2.4); AST(SGOT) 13 U/L (15-37); Alanine Aminotransfer ALT/SGPT 18 U/L (13-56); Albumin, Serum 2.6 g/dL (3.2-5.0); Alkaline Phosphatase 79 U/L (45-117); Anion Gap 7 (5-15); BUN 14 mg/dL (7-18); BUN/Creat Ratio 20.3 RATIO (10-20); Calcium,Total 8.3 mg/dL (8.5-10.1); Chloride 107 mmol/L (98-107); Creatinine, Serum 0.69 mg/dL (0.55-1.02); EST Glomerular Filtration Rate 109 mL/min (>60); Est Glom Filt Rate - Afr Amer 132 mL/min (>60); Globulin 3.8 g/dL (2.2-4.2); Glucose 88 mg/dL (74-106); Potassium 3.9 mmol/L (3.5-5.1); Protein, Total 6.4 g/dL (6.4-8.2); Sodium Level 137 mmol/L (136-145)
== END 2021-07-14 23:59 | disposition home or self-care (01) ==
LOC: WOBLAB 10:39
PROVIDERS: Visit Provider Student in an Organized Health Care Education/Training Program
DX: D64.9 Anemia, unspecified (principal)
CPT/HCPCS: 36415; 80053; 85027

== ENCOUNTER 2021-10-02 04:50 | Inpatient (IN) | payer OTHER, SELFPAY ==
[2021-10-02] VITALS (18 sets, daily range): BP systolic 105–132; BP diastolic 35–73; PULSE 64–110; RESP 14–18; TEMP 35.9–36.6; O2SAT 96–100; BMI 39.7
[2021-10-02] MEDS: Lactated Ringers 1,000 ML 999 ML IV (05:30)
[2021-10-02 05:48] LABS: Absolute Neutrophil Count 8.9 X10^3/uL (2.0-7.7); Basophil# 0.02 X10^3/uL; Basophil% 0.2 % (0-1); Eosinophil# 0.09 X10^3/uL; Eosinophils% 0.8 % (0-5); Hematocrit 30.6 % (37-47); Hemoglobin 9.7 g/dL (12.0-15.0); Lymphocyte % 17.8 % (19-41); Mean Corp Hgb Conc 31.7 g/dL (32-36); Mean Corpuscular Hgb 26.2 pg (27.0-32.0); Mean Corpuscular Volume 82.7 fL (81-99); Mean Platelet Vol. 10.1 fl (6.2-12.0); Monocyte# 0.66 X10^3/uL; Monocyte% 5.6 % (0-10); NRBC Flagged by Analyzer 0 % (0-5); Neutrophil % 75.1 % (47-70); Platelet Count 204 K/mm3 (150-450); RBC Distribution Width CV 13.9 % (11.6-14.6); RBC Distribution Width SD 41.3 fl (35.1-43.9); White Blood Count 11.8 K/mm3 (4.4-11.0)
[2021-10-02] MEDS: Acetaminophen 500 MG Tablet 1000 MG PO ×3 (05:50→18:04)
[2021-10-02] MEDS: Lactated Ringers 1,000 ML 150 ML IV (06:27)
[2021-10-02] MEDS: Sodium Citrate/Citric Acid 30 ML UDC PO (07:13)
--- NOTE | 2021-10-02 07:22 | HP.PCM.OB_ITS ---
History and Physical Date of Admission: 10/02/21 HPI: 26-year-old G3, P1 at 39/0 weeks, NANCY 10/09/2021 by LMP, admitted for repeat section. Denies leaking of fluid, vaginal bleeding, contractions. Reports movement. Denies headache, vision changes, chest pain or shortness of breath, nausea or vomiting, diarrhea or constipation, fevers or chills. 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 section 2. Laparoscopic cholecystectomy 3. Right ankle surgery in 2008 4. [place] teeth extraction Family history: Noncontributory, no history of blood clots or bleeding disorders Social history: Denies tobacco, alcohol, drug use Allergies: Bactrim causes hives or rash Medications: vitamin, Zofran as needed Review of systems: Negative otherwise stated as above Physical exam Vital signs BP 132/72, pulse 110, respirations 16, temp 97.8 ?F, oxygen saturation 99% on room air: General: No acute distress HEENT: Normocephalic/atraumatic, PERRLA Cardiac: Regular rate and rhythm Lungs: Clear auscultation bilaterally Abdomen: Soft, nontender, gravid Extremities: Minimal edema Neurologic: Cranial nerves II through XII grossly intact, no deficits Musculoskeletal: Strength 5 out of 5 throughout all extremities FHR: 135/mod elana/+accel/no decel Azure: quiet NST REACTIVE panel A positive HIV negative Hepatitis B/hepatitis C negative/negative Gonorrhea/chlamydia negative Syphilis nonreactive Rubella immune GBS negative on 09/18 Labs today: CBC with WBC 11.8, hemoglobin/hematocrit 9.7/30.6, platelets 204 Assessment/Plan:26-year-old G3, P1 at 39/0 weeks, NANCY 10/09/2021 by LMP, admitted for repeat section. complicated by: Borderline growth restriction EFW 2139 g on 09/03 (34/6 weeks), anemia of . -Admit to labor and delivery ? Ancef 2 g IV preoperatively ?Anemia of . For iron supplementation . -Routine orders
[2021-10-02] MEDS: Cefazolin 2 GM in 0.9% Normal Saline 100 ML IV (07:35)
--- NOTE | 2021-10-02 08:16 | OP.PCM_ITS ---
Maternal Data Information Final NANCY: 10/09/21 Final NANCY Source: LMP Details Operative Information Date of Procedure: 10/02/21 Pre-Operative Diagnosis: Term silveira intrauterine , repeat section Post-Operative Diagnosis: Term silveira intrauterine , repeat section Indications Narrative: 26-year-old at 39/0 weeks for repeat section. All risk, benefits, alternatives were discussed with the patient. Risks include but are not limited to: Risk of bleeding twin transfusion, in fection, injury to surrounding tissue including bowel/bladder requiring prolonged Luz catheter use, VTE, ICU admission. Patient aware and consented. Classification: Scheduled Procedure Type: low transverse Estimated Blood Loss: 700 cc Fluids Replaced: 1000 cc Findings Description of Procedure: Procedure: Low transverse section Patient taken to the operating room, spinal placed. Patient placed in the supine position with left lateral tilt. Prepped and draped in the usual sterile fashion. Pfannenstiel skin incision made with scalpel and carried down through subcutaneous tissue. Fascia nicked on either side of the midline and extended bilaterally using Bolton scissors. Jacque clamps placed superior fascial edge which was tented up and underlying rectus muscles were dissected off bluntly and sharply at midline. Jacque clamps moved to inferior fascial edge which was tented up and rectus muscles were dissected off in a similar manner. Hemostats utilized to separate rectus muscle superiorly. Peritoneum grasped and incised medially using Metzenbaum scissors. Peritoneal entry extended bluntly. Bladder blade placed. Low transverse uterine incision made with scalpel, extended bluntly. Hand placed into the uterine cavity, head elevated to the level of the hysterotomy. With the assistance of gentle fundal pressure head delivered followed by body. No nuchal cord. Cord clamped and cut. Baby handed to nursing. Spontaneous delivery of placenta. Uterus exteriorized and cleared of all clots. Bladder blade replaced. Hysterotomy closed with a running locking stitch and second horizontal imbricating stitch. Uterus replaced into the abdominal cavity. Hemostatic with Bovie and Debbie. Bladder blade removed. Peritoneum closed with a running stitch. Fascia closed with running stitch. Subcutaneous tissue irrigated. Subcutaneous tissue reapproximated with suture. Skin closed with a running subcuticular stitch. At the end of procedure all needle, lap, sponge counts were correct x3. Urine output: 25 cc clear urine. Infant A Gender: Female (1 minute): 9 (5 minute): 9 Complications Complications: None
[2021-10-02] MEDS: Oxytocin 30 units/NS 500 ml 30 UNITS/500 ML IV.SOLN 167 UNITS IV (08:40)
[2021-10-02] MEDS: Ketorolac 30 MG/ML Syringe IV ×3 (09:04→21:51)
[2021-10-02] MEDS: Lactated Ringers 1,000 ML 100 ML IV (12:02)
[2021-10-02] MEDS: 0.9% Saline Lock 10 ML Syringe IV (21:52)
[2021-10-03] MEDS: Acetaminophen 500 MG Tablet 1000 MG PO ×2 (00:41→06:30)
[2021-10-03 01:25] VITALS: BP 121/55; PULSE 73; RESP 16; TEMP 36.6; O2SAT 98
[2021-10-03] MEDS: 0.9% Saline Lock 10 ML Syringe IV (03:16)
[2021-10-03] MEDS: Ketorolac 30 MG/ML Syringe IV (03:16)
[2021-10-03 05:27] VITALS: BP 119/54; PULSE 87; RESP 16; TEMP 36.6; O2SAT 99
[2021-10-03 05:55] LABS: Hematocrit 25.5 % (37-47); Hemoglobin 8.1 g/dL (12.0-15.0); Mean Corp Hgb Conc 31.8 g/dL (32-36); Mean Corpuscular Hgb 26.8 pg (27.0-32.0); Mean Corpuscular Volume 84.4 fL (81-99); Mean Platelet Vol. 10.5 fl (6.2-12.0); Platelet Count 182 K/mm3 (150-450); RBC Distribution Width CV 13.9 % (11.6-14.6); RBC Distribution Width SD 42.9 fl (35.1-43.9); Red Blood Count 3.02 M/mm3 (4.2-5.4); White Blood Count 15.2 K/mm3 (4.4-11.0)
--- NOTE | 2021-10-03 07:51 | PN.OBGYN_ITS ---
Subjective Subjective No overnight complaints Objective Data Objective Data Vital Signs: Vital Signs Temp Pulse Resp BP Pulse Ox 97.8 F 87 16 119/54 L 99 10/03/21 05:27 10/03/21 05:27 10/03/21 05:27 10/03/21 05:27 10/03/21 05:27 Oxygen Delivery Method Room Air Weight: 231 lb 7.766 oz Body Mass Index (BMI) 39.7 Intake & Output: Intake and Output for Last 24 Hours 10/01/21 10/02/21 10/03/21 23:59 23:59 23:59 Intake Total 3073.23 / 3073.23 Output Total 900 / 1300 400 / 400 Balance 2173.23 / 1773.23 -400 / -400 Lab / Micro Data Result Diagrams: 10/03/21 05:40 Labs: Laboratory Results - last 24 hr 10/03/21 05:40: WBC 15.2 H, RBC 3.02 L, Hgb 8.1 L, Hct 25.5 L, MCV 84.4, MCH 26.8 L, MCHC 31.8 L, RDW Std Deviation 42.9, RDW Coeff of Lul 13.9, Plt Count 182, MPV 10.5 Micro: Microbiology 10/02/21 05:30 Nasal Secretion SARS-CoV-2 Antigen (Rapid) - Final Physical Exam Const alert, oriented x3, no apparent distress, average body habitus, healthy appearing and well nourished HEENT normocephalic and moist oral mucous membranes Head and Scalp: atraumatic Face and Sinus: normal facial exam Neck full ROM Resp normal respiratory effort, no retractions and no use of accessory muscles GI GI Narrative: Soft, nontender, bandage clean dry and intact Extremity normal to inspection, full ROM and no clubbing, cyanosis or edema Psych mental status grossly normal, affect normal, speech normal and activity/motor behavior normal Assessment & Plan (1) delivery delivered: PLAN: Postoperative day 1 status post repeat section. Formula feeding. Pain well controlled. 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
--- NOTE | 2021-10-03 07:51 | PCM.DC ---
Discharge Instructions Diet Discharge Diet: No restrictions Activity Discharge Activity: Return to Normal Activity, May Drive and May Shower May resume sexual activity in: 4-6 weeks Weight Bearing Status: Weight bearing as tolerated Dressing / Incision Call your doctor if your incision/area has: Continuous Slow Oozing and Foul Smelling Discharge Call your doctor if you observe: Fever of 101 or Higher, Shortness of breath and Chest pain Follow Up Care Please Follow Up With: Daya Boyle DO When: 2-week postoperative visit, 4 to 6 weeks Test Results: Test results from this visit will be discussed in further detail at your follow-up appointment, if applicable. Discharge Plan Admission Admit Date/Time: 10/02/21 04:50 Primary Reason for Your Visit: Repeat Section Attending Provider: Daya Boyle Primary Care Provider: Care Physician,[place]edina Primary Discharge Orders/Prescriptions Prescriptions: New oxycodone 5 mg tablet 5 mg PO Q6H PRN (Reason: pain) 4 Days Qty: 20 RF: 0 Continued with DHA-Folic Acid 1 EACH tablet,chewable 1 ea PO DAILY RF: 0 Referrals / Follow Up: Care Physician,No Primary [Primary Care Provider] - Disposition Discharge Orders: Discharge Patient (Routine); Ordered 10/03/21 Ordered By: Dr. El Boyle
[2021-10-03 10:00] VITALS: BP 113/56; PULSE 79; RESP 16; TEMP 36.1
[2021-10-03] MEDS: Ibuprofen 600 MG Tablet PO (10:19)
[2021-10-03] MEDS: Senna/Docusate Sodium 1 Tablet PO (11:41)
[2021-10-03] MEDS: Enoxaparin 40 MG/0.4 ML Syringe SC (11:41)
--- NOTE | 2021-10-10 10:02 | NURSING ---
Follow up phone call attempted, no answer, left message.
== END 2021-10-03 13:05 | disposition home or self-care (01) | DRG 788 ==
PROVIDERS: Admitting Provider Student in an Organized Health Care Education/Training Program; Visit Provider Student in an Organized Health Care Education/Training Program
PROC: 10D00Z1 Extraction of Products of Conception, Low, Open Approach (ICD-10-PCS; CPT 59514; principal; 2021-10-02 07:15)
DX: O34.211 Maternal care for low transverse scar from previous cesarean delivery (principal); O99.02 Anemia complicating childbirth; Z37.0 Single live birth; Z3A.39 39 weeks gestation of pregnancy
CPT/HCPCS: 59050; 85025; 85027; 86850; 86900; 86901; 87426; 99218; J7120; A4216; G0378

== ENCOUNTER → 2022-11-09 | Outpatient (CLI) | payer OTHER, SELFPAY ==
[2022-11-13 11:34] LABS: HPV Reflexed? NOT INDICATED
== END | disposition home or self-care (01) ==
LOC: LABSPEC 09:23
PROVIDERS: Visit Provider Nurse Practitioner Women's Health
DX: Z12.4 Encounter for screening for malignant neoplasm of cervix (principal)
CPT/HCPCS: 88175; G0145